=== PATIENT | male | born 1975 | race Hispanic/Latino ===

== ENCOUNTER 2019-10-29 07:27 | Emergency (ER) | payer BC ==
[~2019-10-29] VITALS: Ht 167.6 cm; Wt 84.9 kg
[2019-10-29] MEDS ORDERED: SODIUM CHLORIDE 0.9% 1000ML 1,000 ML IV STA (07:46)
--- NOTE | 2019-10-29 07:49 | Emergency Department Note ---
History of Present Illnes History of Present Illness Chief Complaint: Abdominal Complaints History of Present Illness This is a 44 year old male c/o LLQ pain for 1 day, 11/29, no testicular pain . Historian: Patient Arrival Mode: Car [employer] Required: No Onset (how long ago): day(s) Radiation: Reports non-radiation Severity: severe Onset quality: gradual Duration (how long): day(s) Timing of current episode: constant Progression: waxing and waning Chronicity: new Relieving factors: none Exacerbating factors: none Associated symptoms: Reports denies other symptoms Treatments prior to arrival: none Past Medical/Family History Physician Review I have reviewed the patient's past medical and family history. Any updates have been documented here. Past Medical History Recent Fever: No Clinical Suspicion of Infectio: No New/Unexplained Change in Ment: No Past Medical History: Hypertension Social History Smoking Cessation: Never Smoker Counseling Performed: No Alcohol Use: Occasional Any Illegal Drug Use: No Physically hurt or threatened: No Other Any Pre-Existing Lines (PICC,: No Review of Systems Review of Systems Constitutional: Reports no symptoms EENTM: Reports no symptoms Cardiovascular: Reports no symptoms Respiratory: Reports no symptoms Gastrointestinal: Reports as per HPI Genitourinary: Reports no symptoms Musculoskeletal: Reports no symptoms Integumentary: Reports no symptoms Neurological: Reports no symptoms Psychological: Reports no symptoms Endocrine: Reports no symptoms Hematological/Lymphatic: Reports no symptoms Physical Exam Related Data Allergies: Coded Allergies: No Known Allergies (Unverified , 10/29/19) Triage Vital Signs Vital Signs Date Time Temp Pulse Resp B/P (MAP) Pulse Ox O2 Delivery O2 Flow Rate FiO2 10/29/19 07:33 98.4 84 16 139/83 100 Room Air Vital signs reviewed: Yes Physical Exam CONSTITUTIONAL Constitutional: Present well-developed, Present well-nourished HENT HENT: Present normocephalic, Present atraumatic, Present oropharynx clear/m oist, Present nose normal HENT L/R: Present left ext ear normal, Present right ext ear normal EYES Eyes: Reports PERRL, Reports conjunctivae normal NECK Neck: Present ROM normal PULMONARY Pulmonary: Present effort normal, Present breath sounds normal CARDIOVASCULAR Cardiovascular: Present regular rhythm, Present heart sounds normal, Present capillary refill normal, Present normal rate GASTROINTESTINAL Abdominal: Present soft, Present bowel sounds normal, Present tender (LLQ) GENITOURINARY Genitourinary: Present exam deferred SKIN Skin: Present warm, Present dry MUSCULOSKELETAL Musculoskeletal: Present ROM normal NEUROLOGICAL Neurological: Present alert, Present oriented x 3, Present no gross motor or sensory deficits PSYCHOLOGICAL Psychological: Present mood/affect normal, Present judgement normal Results Laboratory Lab results reviewed: Yes Laboratory comments unremarkable Imaging Imaging results reviewed: Yes Imaging Comments diverticulitis Assessment & Plan Medical Decision Making MDM diverticulitis, colitis, kidney stone, constipation SBO Reassessment Reassessment time: 09:40 Reassessment pain is controlled, no n/v no fever, taking po well. Assessment & Plan Final Impression: (1) Diverticulitis large intestine w/o perforation or abscess w/o bleeding (2) Left lower quadrant abdominal pain Depart Disposition: HOME, SELF-CARE Last Vital Signs Date Time Temp Pulse Resp B/P (MAP) Pulse Ox O2 Delivery O2 Flow Rate FiO2 10/29/19 07:33 98.4 84 16 139/83 100 Room Air Home Meds Reported Medications Losartan Potassium (LOSARTAN POTASSIUM) 25 Mg Tablet, 50 DAILY 10/29/19 Medications in the ED rocephin IV, toradol IV Physician Attestation Provider Attestation taking PO well, no abscess no perforation on CT, can be safely d/c home on Cipro/flagyl regimen for 2 weeks GIUSEPPE MILLER MD Oct 29, 2019 07:49
[2019-10-29] MEDS ORDERED: ONDANSETRON HCL INJ 2MG/ML 2ML 2 MG/ML VIAL IV ONE (08:00)
[2019-10-29] MEDS ORDERED: KETOROLAC TROMETHAMINE 30 MG/ML VIAL IV ONE (08:00)
[2019-10-29] MEDS ORDERED: ONDANSETRON HCL INJ 2MG/ML 2ML 2 MG/ML VIAL ONE (08:03)
[2019-10-29] MEDS ORDERED: KETOROLAC TROMETHAMINE 30 MG/ML VIAL ONE (08:03)
[2019-10-29] MEDS ORDERED: SODIUM CHLORIDE 0.9% 1000ML 1,000 ML ONE (08:04)
--- NOTE | 2019-10-29 08:09 | NUR ---
Used assisted living executive director line in [place] and pt still called his on speaker for her to translate for him even though he spoke [place]ue[place] to me and understood and answered my questions correctly in niue[place]. The states that he usually has her go with him and now he has to go by himself.
[2019-10-29] MEDS ORDERED: LOSARTAN POTASS25 MG (08:18)
[2019-10-29] MEDS ORDERED: IOPAMIDOL 370 MG/ML 200 ML INFUS..BTL INJ ONE (08:22)
[2019-10-29] MEDS ORDERED: SODIUM CHLORIDE 0.9% 50ML 50 ML ONE (08:22)
--- NOTE | 2019-10-29 09:00 | Diagnostic Imaging Report ---
CT Abdomen And Pelvis with Intravenous Contrast INDICATION: ^LLQ pain ^[id number] ^[id number] TECHNIQUE: Thin collimation axial images obtained from the diaphragm to the level of the pubic symphysis following the uneventful administration of 100 cc of low osmolar, nonionic intravenous contrast. Dose reduction techniques used: Automated exposure control, adjustment of the mAs and/or kVp according to patient size, standardized low-dose protocol, and/or iterative reconstruction technique. RADIATION DOSE: Total DLP: 723.99 mGy*cm Estimated effective dose: (DLP x 0.015 x size factor) mSv CTDIvol has been reviewed. It is below the limits set by the Radiation Protocol Committee (RPC). COMPARISON: None. ABDOMEN FINDINGS: Lung Bases: Mild bibasilar atelectasis. Right pericardial cyst measures 3.7 x 1.8 cm. Liver: Normal attenuation. No evidence for mass. Gallbladder: Present and appears normal. No biliary ductal dilatation. Pancreas: Normal attenuation without mass or ductal dilatation. Spleen: Normal in size. Cyst in the anterior region measures 2.3 x 2.5 cm. Low attenuating lesion in the superior pole measures 7 mm. No enhancing mass. Adrenal Glands: No evidence for mass. Kidneys: Right: Normal enhancement. No soft tissue mass. No hydronephrosis. Left: Normal enhancement. No soft tissue mass. No hydronephrosis. Lymph Nodes: No lymphadenopathy. Aorta: Normal in diameter PELVIS FINDINGS: Bowel: Stomach: Normal. Small Bowel: Normal in caliber with normal wall thickness. Large Bowel: Diverticulosis. There are multiple inflamed diverticula with mural thickening and hyperemia in the mid and distal descending colon. No adjacent fluid collections. Mild to moderate burden of stool in the right colon. Appendix: Normal. Bladder: Mildly underdistended but otherwise normal. Peritoneum/retroperitoneum: No loculated fluid collection or free air. Bones: Scattered bone islands in the femurs. No destructive lesions. Soft tissues: Unremarkable. IMPRESSION: 1. Acute diverticulitis of the descending colon. No evidence of abscess or perforation. 2. Two low attenuating lesions in the spleen are suggestive of cysts. 3. Pericardial cyst is described above. Signed by: Dr. Tiesha Small MD on 10/29/2019 8:56 AM
[2019-10-29] MEDS ORDERED: CEFTRIAXONE SOD 1 GM/NS 50 ML 50 ML IV ONE ×2 (09:12→09:15)
[2019-10-29 09:13] VITALS: BP 125/81
[2019-10-29] MEDS ORDERED: CEFTRIAXONE SOD 1 GM VIAL IV ONE (09:15)
== END 2019-10-29 09:25 | disposition home or self-care (01) ==
LOC: FSED 07:27
DX: R10.32 Left lower quadrant pain (principal); K57.32 Diverticulitis of large intestine without perforation or abscess without bleeding; I10 Essential (primary) hypertension
CPT/HCPCS: 74177; 80053; 81003; 85025; 96374; 96375; 99284; J0696; J1885; J2405; J7030; Q9967